=== PATIENT | female | born 1985 | race Hispanic/Latino ===

== ENCOUNTER 2016-10-02 00:44 | Inpatient (IN) | payer MEDICAID ==
[2016-10-02] VITALS (10 sets, daily range): BP systolic 69–108; BP diastolic 42–78; PULSE 55–82; RESP 11–30; O2SAT 95–100
[~2016-10-02] VITALS: Ht 147.3 cm; Wt 59.1 kg
[~2016-10-02 00:44] MED LIST: ASP81TEC PO; DIGO250T PO; TOPR25T PO; XVIS2550 PO; ZES5 PO; ZOC20 PO
--- NOTE | 2016-10-02 01:11 | ED.REPORT ---
HPI-Stroke / CVA Oct 02, 2016 ED Provider: Beka Porter MD Patient is a 31 year old female with a history of nonischemic cardiomyopathy, wide complex tachycardia s/p AICD placement, congestive heart failure, 2x prior CVAs who presents to the ED via EMS after she awoke just prior to arrival sleep screaming and complaining of weakness. Her reports a last known normal of 10pm last night. Her states that she awoke from sleep crying and stating that she had difficulty getting enough air. She states that she "could not move" and was weak on her right side. He reported that the patient had a similar presentation when she last had a CVA. Her most recent CVA was in 2014 and she is followed by the [facility]. Patient was given 250mg of Ketamine by EMS due to her persistent screaming, with the patient arriving to the ED sedated and non-arousable. She is unable to provide any history. Nursing Notes Stated Complaint: CODE STROKE Nursing Notes Reviewed: Yes Allergies: Coded Allergies: No Known Allergies (Verified , 10/02/16) Scheduled Aspirin-Expunged Drug, Do Not Renew! (Aspirin EC-Expunged Drug, Do Not Renew!) 81 Mg Tablet 81 MG PO DAILY (Reported) DO NOT CRUSH. To protect your heart. Digoxin-Expunged Drug, Do Not Renew! (Digoxin-Expunged Drug, Do Not Renew!) 250 Mcg Tablet 0.25 MG PO DAILY (Reported) For your heart. Lisinopril-Expunged Drug, Do Not Renew! (Lisinopril-Expunged Drug, Do Not Renew! ) 5 Mg Tablet 2.5 MG PO DAILY (Reported) Metoprolol Suc-Expunged Drug, Do Not Renew! (Metoprolol Suc-Expunged Drug, Do Not Renew!) 25 Mg Tber 25 MG PO DAILY (Reported) To control heart rate/blood pressure. Simvastatin-Expunged Drug, Choose New Med! (Simvastatin-Expunged Drug, Choose New Med!) 20 Mg Tablet 10 MG PO DAILY (Reported) Scheduled PRN Hydroxyzine Leslie-Expunged Drug, Do Not Renew! (Vistaril-Expunged Drug, Do Not Renew!) 25 Mg Tab 25 MG PO Q12 PRN PRN (Reported) As needed for itching General Time Seen by Provider: 01:00 Chief Complaint Weakness, Unconscious Right-sided Hx Obtained From: EMS Unable to Obtain Hx: Patient condition Arrived By: Ambulance Time last known well 10pm last night Sudden in Onset?: Yes Context of Onset: During sleep Symptom Duration: Since onset Progression Since Onset: Unchanged Similar Sx Previous: Yes Past Medical History Past Medical History 1. Cardiomyopathy with history of arrhythmia, the etiology appears unclear. 2. Congestive heart failure, chronic, secondary to nonischemic cardiomyopathy. 3. 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 Class 2 TB. 5. chronic hypotension 6. Wide complex tachycardia, status post automatic implantable cardioverter defibrillator placement. Past Surgical History Reports: Pacemaker insertion (AICD), Tubal ligation Smoking History Unknown if Ever Smoker Social History Other Social History: Good social support, , Local resident Ambulatory Status Independent Review of Systems Unable to Obtain ROS Patient condition (sedated) Neurologic: Reports: Change LOC, Weakness Physical Exam Initial Vital Signs Vital Signs (First) Date Time Temp Pulse Resp B/P Pulse Ox O2 Delivery O2 Flow Rate FiO2 10/02/16 00:55 35.0 70 11 105/66 95 Nasal Cannula 3 Initial VS: Reviewed, Vital signs normal ENT: Mucous membranes moist, Conjunctiva normal, No scleral icterus Abdomen / GI: Soft, No distention Extremities: No swelling Skin: Warm, Dry, No cyanosis Alertness: Positive: Sleeping but arousable, Unresponsive, Negative: Responds to pain stimuli, Responds to verb stimuli Head / Eyes: Normocephalic, PERRL Neck: Supple, Non-tender Respiratory / Chest: No rales, No rhonchi, No wheezing Periodic breathing with some apneic pauses. Requiring airway to be held open by RT, but has a good protectice reflex. Cardiovascular: Heart rate NL, Regular rhythm, Heart sounds NL, No gallop, No murmurs Mental Status: Positive: Pharmacologically sedated Patient is unconscious and sedated, unable to perform a neurological exam. Interpretation & Diagnostics Lab Results Interpretation Result Diagram: 10/02/16 0435 10/02/16 0435 Test 10/02/16 01:00 10/02/16 01:27 10/02/16 01:42 Prothrombin Time 12.4sec (8.1-12.5) Prothromb Time International Ratio 1.16ratio Activated Partial Thromboplast Time 27.5sec (22.8-33.0) Troponin T 0.151ug/L (0.0-0.011) Hold [place] Top Tube Received (Received) Hold Purple Top Tube Received (Received) Hold Blue Top Tube Received (Received) Hold Red Top Tube Received (Received) Hold [place] Top Tube Received (Received) Lab Results Interpretation: Troponin is elevated at 0.152, mild hyperkalemia X-Ray Chest Interpretation Chest Xray Interpretation: Impression: Good ET tube position. Increased fluffiness right lobe. View: Portable CT Head Interpretation CONCLUSION: Old left temporal infarct. Suspected old right parietal infarct. No acute intracranial abnormality. Radiologist: Hemant Salamanca MD 10/02/2016 - 1:12:38 AM PDT Study: Head CT no contrast Interpretation / Wet Read by: Interpret - Radiologist Procedures Intubation Intubation Procedure: Patient is sedated prior to procedure, no procedural sedation used. Time: 02:24 Procedure Performed by: ED physician Consent / Setup / Site Prep: Consent from spouse, Oxygen administered, Pulse oximeter applied, potline monitor applied, Hand hygiene observed, Stand sterile technique Patient Position: Sniff position Blade / ET Tube / Route: Lodge scope, ET tube cuffed (7 ET tube), Route: oral Neuromuscular Agent: Succinylcholine (100mg) ET Confirmation: Direct visualization, BS equal, End tidal CO2 device, CXR, Rising O2 sat Secured / Marked: ET tube device, Adhesive tape, Tube marked at ___ cm (21cm ), Tube marked at lip Complications: None Post-Procedure: Condition improved, Tolerated procedure well, Patient stable Re-Eval/Medical Decision Med Decision/Clinical Course 31-year-old female with a history of cardiomyopathy and CVA. She had a sudden onset several hours prior to admission of increasing left-sided weakness chest pain or shortness of breath. She was very agitated in the field and was given 250 mg of IM ketamine. Upon arrival here she was profoundly sedated from the medication. CT scan was negative for any acute stroke. She was having some difficulty maintaining her airway so RT assisted. She did not clear within 2 hours so she was intubated to protect and maintain her airway. Evaluation of the neurologic exam was obviously not possible given her sedation. Troponin was elevated 0.152. She developed some increased in airway pressures and frothy blood-tinged sputum. Her case and EKG were shared with Dr. Eagle who will consult. He did not feel that she represented coronary artery disease. He recommended Lasix, and serial troponins and EKGs. She was not felt to be a candidate for TPA because of the contingencies of her presentation. Source of Hx: Old records Re-Evaluation/Progress #1: Time of Eval: 01:30 Re-Evaluation/Progress Note: Patient continues to need RT to breathe. She remains sedated and cannot evaluate her neurologically. Re-Evaluation/Progress #2: Time of Eval: 02:18 Re-Evaluation/Progress Note: Patient remains sedated and needs RT for breathing assistance. Will intubate the patient. Informed her that she will need to be admitted to the hospital for further care. Consultation #1: Referral / Consult Name: Veronika Mckeon MD Consulted With: Hospitalist Call Returned at: 02:50 Main Line Station Engineer: Will see patient, Agrees with eval, Agrees with plan, Accepts admit Note: Spoke with Dr. Mckeon, hospitalist, about the patient's case. She agrees to accept the patient for admit. Consultation #2: Referral / Consult Name: Arpit Bonilla MD Consulted With: Cardiology Call Returned at: 03:15 Main Line Station Engineer: Agrees with eval, Agrees with plan Note: Spoke with Dr. Bonilla, cardiology, about the patient's case. He agrees to act as consult. Counseled Regarding: Diagnosis, Lab results, Need for admission Patient Discharge & Departure Impression: Primary Impression: Decreased level of consciousness Additional Impressions: Cardiomyopathy Elevated troponin Disposition: ADMITTED TO HOSPITAL Discharge Condition All VS Reviewed: Yes Condition: Stable Referrals: Kathrin Nguyen MD (PCP) Crit Care Except Billable Proc Time Spent: 30-74 minutes Services Performed: Patient management by me, Time spent at bedside, Reviewing test results, Reviewing imaging, Discussing patient care, Documentation in record, Time with fam/surrogate Critical Care Notes: Present with combined neurologic and cardiac disease requiring intubation and CCU admission. Scribe Attestation Portions of this note were transcribed by Fabiola Valle. I, Dr. Porter personally performed the history, physical exam and medical decision-making; I reviewed and confirmed the accuracy of the information in the transcribed note. Signed by: Amie Zamora, 10/02/2016 [id number] copies to: Kathrin Nguyen MD, Howard L MD Oct 02, 2016 01:11 Fabiola Valle Oct 02, 2016 01:19 Hold [place] Top Tube Received (Received) Hold Purple Top Tube Received (Received) Hold Blue Top Tube Received (Received) Hold Red Top Tube Received (Received) Hold [place] Top Tube Received (Received) X-Ray Chest Interpretation Chest Xray Interpretation: Impression: Good ET tube position. Increased fluffiness right lobe. View: Portable CT Head Interpretation CONCLUSION: Old left temporal infarct. Suspected old right parietal infarct. No acute intracranial abnormality. Radiologist: Hemant Salamanca MD 10/02/2016 - 1:12:38 AM PDT Study: Head CT no contrast Interpretation / Wet Read by: Interpret - Radiologist Procedures Intubation Intubation Procedure: Patient is sedated prior to procedure, no procedural sedation used. Time: 02:24 Procedure Performed by: ED physician Consent / Setup / Site Prep: No consent - emergent, Oxygen administered, Pulse oximeter applied, potline monitor applied, Hand hygiene observed, Stand sterile technique Patient Position: Sniff position Blade / ET Tube / Route: Lodge scope, ET tube cuffed (7 ET tube), Route: oral Neuromuscular Agent: Succinylcholine (100mg) ET Confirmation: Direct visualization, BS equal, End tidal CO2 device, CXR, Rising O2 sat Secured / Marked: ET tube device, Adhesive tape, Tube marked at ___ cm (21cm ), Tube marked at lip Complications: None Post-Procedure: Condition improved, Tolerated procedure well, Patient stable Re-Eval/Medical Decision Source of Hx: Old records Re-Evaluation/Progress #1: Time of Eval: 01:30 Re-Evaluation/Progress Note: Patient continues to need RT to breathe. She remains sedated and cannot evaluate her neurologically. Re-Evaluation/Progress #2: Time of Eval: 02:18 Re-Evaluation/Progress Note: Patient remains sedated and needs RT for breathing assistance. Will intubate the patient. Informed her that she will need to be admitted to the hospital for further care. Consultation #1: Referral / Consult Name: Veronika Mckeon MD Consulted With: Hospitalist Call Returned at: 02:50 Main Line Station Engineer: Will see patient, Agrees with eval, Agrees with plan, Accepts admit Note: Spoke with Dr. Mckeon, hospitalist, about the patient's case. She agrees to accept the patient for admit. Consultation #2: Referral / Consult Name: Arpit Bonilla MD Consulted With: Cardiology Call Returned at: 03:15 Main Line Station Engineer: Agrees with eval, Agrees with plan Note: Spoke with Dr. Bonilla, cardiology, about the patient's case. He agrees to act as consult. Counseled Regarding: Diagnosis, Lab results, Need for admission Patient Discharge & Departure Impression: Primary Impression: Decreased level of consciousness Additional Impressions: Cardiomyopathy Elevated troponin Disposition: ADMITTED TO HOSPITAL Discharge Condition All VS Reviewed: Yes Condition: Stable Referrals: Kathrin Nguyen MD (PCP) Crit Care Except Billable Proc Time Spent: 30-74 minutes Services Performed: Patient management by me, Time spent at bedside, Reviewing test results, Reviewing imaging, Discussing patient care, Documentation in record, Time with fam/surrogate Scribe Attestation Portions of this note were transcribed by Fabiola Valle. I, Dr. Porter personally performed the history, physical exam and medical decision-making; I reviewed and confirmed the accuracy of the information in the transcribed note. Signed by: Amie Zamora, 10/02/2016 0343 copies to: Kathrin Nguyen MD, Howard L MD Oct 02, 2016 01:11 Fabiola Valle Oct 02, 2016 01:19
[2016-10-02 01:35] LABS: BASOPHILS % (AUTO) 0.2 % (0-3); EOSINOPHILS % (AUTO) 0.6 % (0-5); MONOCYTES % (AUTO) 14.6 % (4-12); Mean Corpuscular Hemoglobin 25.5 pg (27.0-35.0); Mean Corpuscular Volume 81.2 fL (81-100); NEUTROPHILS % (AUTO) 39.4 % (40-74); Platelet Count 195 bil/L (150-400)
[2016-10-02 01:39] LABS: INR 1.16 ratio
[2016-10-02 02:02] LABS: TROPONIN T 0.151 ug/L (0.0-0.011)
[2016-10-02] MEDS ORDERED: Furosemide 10 mg/mL 4 mL Inj IVPUSH ONE (03:00)
[2016-10-02] MEDS ORDERED: Propofol 10,000 mCg/mL 100 mL Inj ONE (03:09)
[2016-10-02] MEDS ORDERED: Alum-Mag Hydrox-Simeth 30 mL Suspension PO PRN (03:10)
[2016-10-02] MEDS ORDERED: Ondansetron 2 mg/mL 2 mL Inj IVPUSH PRN ×2 (03:10→03:55)
[2016-10-02] MEDS ORDERED: Senna-Docusate 8.6-50 mg Tablet PO PRN (03:10)
[2016-10-02] MEDS ORDERED: Polyethylene Glycol (PEG) 17 Gm Powder PO PRN ×2 (03:10→03:55)
--- NOTE | 2016-10-02 03:40 | ABG ---
DateTimeAnalyzed 03:37:00 -_ pH ____7.132 - 7.350 7.450 pCO2 ___61.8__ -mmHg 35.0 45.0 pO2 368 -mmHg 69.0 116 HCO3- ___19.7__ -mmol/L 22.0 26.0 ABE __-10.0__ -mmol/L -2.0 2.0 tHb ___13.1__ -g/dL O2Hb ___98.1__ -% COHb ____0.5__ -% MetHb ____0.7__ -% sO2 ___99.3__ -% FIO2 __100.0__ -% PEEP ____8.0__ -cmH2O Set_RR ___24.0__ -b/min Vt __350.0__ -L Drawn By bf - Date/Time Notified____ 03:40:00 -_ Spontaneous_RR ___26.0__ -b/min Oxygen Device 1 VENTILATOR - Notified By AF - Notified Whom ___Dr. Leibrand - B 759 -mmHg tO2 ___18.9__ -Vol% Jefry test _Positive -
[2016-10-02] MEDS: Propofol Inj 1,000,000 MCG in IV Premix 1 EACH IV SCH ×3 (03:55→14:54)
[2016-10-02] MEDS ORDERED: Pantoprazole 4 mg/mL 10 mL Inj IVPUSH SCH (03:55)
[2016-10-02 04:00] LABS: APPEARANCE,URINE CLEAR (CLEAR,HAZY); COLOR,URINE DARK YELLOW (YELLOW); OCCULT BLOOD,URINE TRACE (NEGATIVE)
[2016-10-02 04:01] LABS: ICTOTEST,URINE POSITIVE (Negative)
[2016-10-02 04:53] LABS: BASOPHILS % (AUTO) 0.1 % (0-3); EOSINOPHILS % (AUTO) 0 % (0-5); MONOCYTES % (AUTO) 7.4 % (4-12); Mean Corpuscular Hemoglobin 25.5 pg (27.0-35.0); Mean Corpuscular Volume 80.9 fL (81-100); NEUTROPHILS % (AUTO) 83.7 % (40-74); Platelet Count 192 bil/L (150-400)
[2016-10-02] MEDS ORDERED: DOPamine 800 mg/250 mL D5W 800,000 MCG in IV Premix 1 EACH IV SCH (04:55)
--- NOTE | 2016-10-02 04:59 | ABG ---
DateTimeAnalyzed 04:57:00 -_ pH ____7.385 - 7.350 7.450 pCO2 ___35.9__ -mmHg 35.0 45.0 pO2 159 -mmHg 69.0 116 HCO3- ___21.0__ -mmol/L 22.0 26.0 ABE ___-2.9__ -mmol/L -2.0 2.0 tHb ___12.0__ -g/dL O2Hb ___97.5__ -% COHb ____1.2__ -% MetHb ____0.8__ -% sO2 ___99.5__ -% FIO2 ___50.0__ -% PEEP ____8.0__ -cmH2O Set_RR ___30.0__ -b/min Vt __330.0__ -L Drawn By AF - Date/Time Notified____ 04:59:00 -_ Spontaneous_RR ___31.0__ -b/min Oxygen Device 1 VENTILATOR - Notified By AF - Notified Whom ___Dr. Kubisty - B 759 -mmHg tO2 ___16.8__ -Vol% Jefry test _Positive -
--- NOTE | 2016-10-02 05:19 | PCM.HPMED ---
Subjective Date of Service Oct 02, 2016 Primary Provider: Admitting Physician: Veronika Mckeon MD Primary Care Physician: Kathrin Nguyen MD Attending Physician: Veronika Mckeon MD Chief Complaint: Hemiparesis, respiratory distress History of Present Illness: Patient is a 31-year-old woman with history of tuberculosis status post treatment in 2000, nonischemic cardiomyopathy, wide complex tachycardia status post AICD placement, congestive heart failure, 2 previous CVAs mukesh in 2011 the other in 2014, the former being hemorrhagic per . 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 Earlier this evening they were watching a movie, but he finished and he went to bed without any problems. Patient attempting to fall asleep using her CPAP machine, 10-20 minutes later she was restless per , it appeared as though she was trying to scream but could not make any intelligible words, he said her tongue was deviated to the right, and right arm and leg were not moving. He called his son, who called the ambulance. She is seen by box covering machine operator Dr. Oz Scott in [place], reportedly she had a visit in July of this year and was told that her heart function was worsening. In regards to her cardiomyopathy, reports that patient's sister, roughly 10 years younger, has similar problems. In the last couple of days says she has been having trouble breathing when laying flat. As reported by the emergency department that due to the patient's distress in the field she was given ketamine en route. When she arrived in the emergency department she was sedated and not arousable. Given the history of code stroke was called. She was intubated due to concern for protecting her airway She received the following workup: noncontrast head CT which was read as "CONCLUSION: Old left temporal infarct. Suspected old right parietal infarct. No acute intracranial abnormality." 10/02/2016 - 1:12:38 AM PDT Chest x-ray- no official reading as of this dictation: Cardiac silhouette markedly enlarged, lung singh appear to have diffuse interstitial edema. Endotracheal tube in place. No pneumo or hemothorax, no effusions Labs: WBC 9.3, hemoglobin and hematocrit normal, platelet count 195, 39.4% neutrophils, 14.6% monocytes. Sodium 140, potassium 5.5, BUN/creatinine normal , total bili 1.4, liver enzymes normal, alk phosphatase 190, troponin 0.151. Coag studies were normal. Urine dark yellow, pH 6.0, specific gravity 1.03, protein 100, negative glucose and ketones, negative nitrites, no bacteria seen. EKG #1: Heart rate 70, "accelerated junctional rhythm, ventricular bigeminy, probable left ventricular hypertrophy, anterior Q waves, possibly due to LVH, nonspecific T abnormalities in lateral leads." EKG #2: Heart rate 74, sinus rhythm, "left atrial enlargement, consider biatrial enlargement. Anterolateral infarct, age indeterminate." Arterial blood gas in the emergency department: PH 7.13, PCO2 61.8, PaO2 368, bicarbonate 19.7, FiO2 100% Dr. Bonilla, cardiology, was spoken with regarding the patient, agreed to consult. Was instructed by the ER physician that the picture does not appear to be coronary artery occlusion, and to hold off heparin drip. Review of Systems: Review of systems unable to be obtained secondary to sedation and intubation Allergies Coded Allergies: No Known Allergies (Verified , 10/02/16) Home Medications Reported In enteric coated aspirin, 81 mg by mouth daily Digoxin 250 g daily by mouth daily Hydroxyzine 25 mg every 12 hours as needed for itching Lisinopril 2.5 mg daily by mouth daily Metoprolol XL 25 mg by mouth daily Simvastatin 10 mg by mouth daily PMH 1. Cardiomyopathy with history of arrhythmia, the etiology appears unclear. 2. Congestive heart failure, chronic, secondary to nonischemic cardiomyopathy. 3. CVA in 2011 (hemorrhagic) and 2014 embolic -per , 4. Class 2 TB. status post 6-9 months of oral antibiotic therapy in 2000 5. chronic hypotension 6. Wide complex tachycardia, status post automatic implantable cardioverter defibrillator placement. Surgical History AICD placement 2011 Tubal ligation with complication of intra-abdominal hemorrhage Family History Per - parents history unknown Patient has a sister roughly 10 years younger with similar heart problems Social History Hx Alcohol Use: No Hx Substance Use: No Hx Tobacco Use: No Smoking Status: Unknown if Ever Smoker Living Arrangement: with Family Exam Vital Signs Vital Sign - Last Date Time Temp Pulse Resp B/P Pulse Ox O2 Delivery O2 Flow Rate FiO2 10/02/16 04:38 66 94/54 100 50 10/02/16 04:15 27 Mechanical Ventilator 10/02/16 00:55 35.0 3 Exam General: Laying in bed, intubated, sedated, occasional coughs HEENT: Normocephalic, atraumatic, EOMI grossly, endotracheal tube and OG tube in place. Cardiovascular: Regular rate and rhythm, no clicks murmurs rubs, peripheral pulses 2/4 equal bilaterally, unable to appreciate third heart sound, PMI to faint to appreciate. Hepatojugular reflux not appreciated, no JVD apparent Pulmonary: Clear to auscultation bilaterally, rhonchi present throughout the thorax, unable to appreciate rales. Frothy pink sputum coughed up through endotracheal tube. Abdominal: Soft to palpation, bowel sounds present 4, no hepatosplenomegaly. Patient recoils when right upper extremity is deeply palpated. Surgical scar, midline below the umbilicus. Extremities: No edema appreciated. No tenderness, asymmetry. Neuro: Neurologic exam is limited due to sedation. Pupils are equally round. She appears to only move her left upper and lower extremities in response to pain. MSK: Unable to thoroughly examine. Psych: GCS 3 Lab and Diagnostics Result Diagram: 10/02/16 0435 10/02/16 0100 Microbiology Sputum samples pending X-Rays, CTs and MRIs Please see history of present illness 12-lead ECG Please see history of present illness Cardiac Echo Impressions Echocardiogram performed 06/03/2013 The ejection fraction is estimated to be 20-25%. There is moderate to severe global hypokinesis of the left ventricle, basal inferior akinesis and severe inferior hypokinesis. Assessment of diastolic parameters suggests a pseudonormalization pattern, consistent with elevated filling pressures. There is an ICD lead in the right ventricle. The right ventricle is normal in size and function. The left atrium is severely dilated. The right atrium is mildly dilated. There is mild tricuspid regurgitation. The right ventricular systolic pressure is estimated at 48 mmHg assuming a right atrial pressure of 8 mm Hg The patient was in normal sinus rhythm with frequent PVCs during the exam. Comparison is made with the echocardiogram of 06/24/12. LV systolic function is slightly worsened, with the EF down from 30-35% to 20-25% Additional Diagnostics: An ion gap 17.0 mEq per liter Urine tox screen in the ED positive for opiates. Assessment & Plan 31-year-old woman with history of cardiomyopathy, congestive heart failure, 2 previous cerebrovascular accidents, suffered acute hemiparalysis and respiratory distress. #1 acute right-sided hemiparesis, highly suspect embolic/ischemic CVA, present on admission, evaluation and treatment initiated - reports right-sided hemiparesis prior to calling EMS, patient is heavily sedated unable to perform proper NIH assessment. Head CT noncontrast in the ED did not show any acute bleed, evidence of old infarct present. -CTA neck and head, BUN/creatinine stable. Patient is intubated otherwise MRI. -Neurology consult in the a.m. -Patient is on statin medication as an outpatient, enteric-coated aspirin, digoxin. -Patient currently hypotensive with sedation, treatment as below to preserve perfusion. #2 acute respiratory distress, most likely due to flash pulmonary edema secondary to congestive heart failure exacerbation, present on admission, evaluation and treatment initiated -X-ray appearing fluid overloaded, pink frothy sputum, worsening history of coughing while laying flat, superimposed on history of cardiomyopathy. -IV Lasix 40 mg given, -Osorio catheter in place -Remain intubated at this time until evaluated by pulmonary and security chief museum. -PICC line for dopamine to maintain map greater than 65, patient is on digoxin outpatient for hypotension. #3 mixed respiratory and metabolic acidosis, chronicity unknown, present on admission, improving. -PH 7.13 1 hour later following intubation => 7.38 PCO2 61.8 => 35.9 PO2 36 8 => 159 HCO3 19.7 => 21.0 100% FiO2 reduced to 50% Most likely due to acute pulmonary edema, compromising gas exchange superimposed with prehospital sedation. Improving with mechanical ventilatory support. Respiratory therapy to follow and management vent. #4 acute hyperkalemia, present on admission, evaluation and treatment ongoing. -Possibly due to effect of digoxin -We will monitor with a.m. labs after receiving Lasix. -EKG is nonspecific for signs of potassium toxicity, however if remains elevated will consider additional treatment. Patient has elevated blood glucose , insulin may be of use. 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 Blood pressure upon arrival to the CCU was 84/51, with a map of 56. Patient has low blood pressure normally, on digoxin and metoprolol as an outpatient. Holding these medications until consultation and additional evaluation has been performed. Most recent echocardiogram on file was from 2012 showed an EF of 20-25% Patient is being seen by Dr. Oz Scott in [place], I have asked the community relations assistant to acquire records. states that they were told in July that her heart strength had decreased. PICC line has been placed, dopamine drip to preserve MAP >65, given the concern for embolic stroke blood pressure should be aggressively maintained. Urgent echocardiogram in the morning Cardiology has been consult by the emergency room physician, Dr. Rendon has agreed to accept the patient #6 acute on chronic elevated serum troponin, present on admission, evaluation ongoing. -Review of previous troponin levels show them always to be elevated. -Heparin drip was not started, it was reported by the emergency room physician that EKG changes and troponin level rise (from baseline) were not consistent with a picture of an NSTEMI. -Echocardiogram, cardiology consultation as above #7 Acute elevated serum lactic acid present on admission, evaluation and treatment ongoing -most likely due to cardiogenic shock due to low output, concurrent hypercapnia. -Treatment as above. -trend until normal. #8 elevated serum glucose, chronicity unknown, evaluation and treatment initiated. Hemoglobin A1c Low-dose correctional insulin Nothing by mouth at this time VTE Prophylaxis with subcutaneous heparin and SCDs GI prophylaxis: PPI Pain management: Sedation propofol and fentanyl. Due to cardiac instability, need for intubation due to poor respiratory protection, patient was admitted to the critical care unit with an anticipated length of stay greater than two midnights Pain Evaluation: Adequate Pain Control GI Prophylaxis: Proton Pump Inhibitor VTE Prophylaxis: Sub-Q Heparin (Unfractionated) Resuscitation Status: CPR: Attempt Resuscitation Attending Statement Pt seen and examined by myself and agree with above plan. Dillon Traylor DO Oct 02, 2016 05:19 Veronika Mckeon MD Oct 04, 2016 06:25
[2016-10-02 05:22] LABS: Magnesium 1.8 mg/dL (1.6-2.6)
[2016-10-02] MEDS ORDERED: Sodium Chloride LOK Flush 10 mL Syringe IVFLUSH PRN ×2 (05:45)
[2016-10-02] MEDS: Sodium Chloride LOK Flush 10 mL Syringe IVFLUSH SCH ×2 (05:47→07:46)
[2016-10-02] MEDS: Chlorhexidine 0.12% 15 mL Oral Solution MT SCH ×3 (05:47→12:32)
[2016-10-02] MEDS: fentaNYL-PF 50 mCg/mL 2 mL Inj IVPUSH PRN ×2 (06:22→07:40)
[2016-10-02] MEDS ORDERED: Magnesium Sulf 2 Gm/50mL Water 2 GM in IV Premix 1 EACH IV ONE (06:45)
--- NOTE | 2016-10-02 07:44 | NUR ---
admit note pt received from er at 0440 per trevin to ccu room 2011, admit done per recall and per husbands info who stated that medical history should be in computer, asked to bring pt's home meds in for med rec, went home after pt received to ccu to take care of the kids, aware pt not well sedated on vent on propofol gtt 12-18mcg/kg/min, md wanted dopamine gtt for hypotension, low dose dopamine on briefly then turned off due to multiple pvc's, md aware dopamine off and aware of labs, picc line ordered for this am, ivt called and at bedside at change of shift, lab aware of lactic acids ordered q2hrs, perrla, 5mm bilaterally, right side flacid, left side with lots of movement when pt agitated, 1100 ml uop per f/c no bm, ogt placement=wnl, ogt to lis, see ccu flow sheet, continue monitoring, day rn aware of order for echo/ct/md consults for today,
[2016-10-02] MEDS: Insulin Human REGular 300 Unit/3 mL Inj SUBQ SCH ×2 (07:59→14:30)
--- NOTE | 2016-10-02 08:13 | DRSVH ---
PROCEDURE: CT BRAIN (TPA) ([id number]) INDICATIONS: Stroke TECHNIQUE: Noncontrast 4.5 mm thick angled axial sections acquired from the foramen magnum to the vertex, with c oronal reformats. COMPARISON: [facility], CT, BRAIN W/O CONTRAST, 01/11/2012, 15:48. [facility], CT, BRAIN W/O CONTRAST, 01/25/2013, 19:54. [facility], CT, BRAIN W/O CONTRAST, 2014, 14:10. FINDINGS: Image quality: Excellent. CSF spaces: Basal cisterns are patent. No extra-axial fluid collections. Ventricles are normal in size and shape. Brain: Again noted is an old infarct in the left frontotemporal lobe with encephalomalacia. No midli ne shift. No intracranial masses or hemorrhage. Xiong-white matter interface is normal. Skull and face: Calvarium and visualized facial bones are intact, without suspicious lesions. Sinuses: Visualized sinuses and mastoids are clear. IMPRESSION: 1. No acute intracranial abnormalities. 2. Old infarction left frontotemporal lobe. No significant discrepancy with the operation shift supervisor radiology preliminary report. This study fulfills neurological imaging criteria for inclusion or exclusion of acute stroke therapie s based on available published neurological imaging guidelines. Dictated by: Viky Llanes M.D. on 10/02/2016 at 8:04 Approved by: Viky Llanes M.D. on 10/02/2016 at 8:11
--- NOTE | 2016-10-02 08:14 | DRSVH ---
PROCEDURE: X-RAY CHEST ONE VIEW, PORTABLE ([id number]) INDICATIONS: POST INTUBATION TECHNIQUE: One view of the chest was acquired. COMPARISON: [facility], CR, CHEST 2VW, 06/29/2012, 6:29. [facility], CR, C HEST 1VW (PORTABLE), 09/08/2014, 14:08. FINDINGS: Surgical changes and devices: ETT is in place tip projected 3.1 cm above the chasity. Stable position ing of left single lead chest AICD. Lungs and pleura: Lung volumes are low and interstitium is prominent and pulmonary edema suspected. Bibasilar airspace opacities. No pneumothorax. Mediastinum: Mediastinal contours appear normal. Heart size is enlarged. Bones and chest wall: No suspicious bony lesions. Overlying soft tissues appear unremarkable. IMPRESSION: 1. Placement of ETT. 2. Pulmonary edema and/or pneumonia versus atelectasis involving the lung bases. Dictated by: Robe CALDERON Interpreted: Maya Conley MD on 10/02/2016 at 8:12 Transcribed by: MOISÉS on 10/02/2016 at 8:14 Approved by: Maya Conley M.D. on 10/02/2016 at 16:45
[2016-10-02] MEDS ORDERED: fentaNYL 2,500 mCg/250 mL 2,500 MCG in IV Premix 1 EACH IV SCH (08:20)
[2016-10-02] MEDS ORDERED: Heparin 5,000 Unit/mL Inj SUBQ SCH (08:30)
[2016-10-02] MEDS ORDERED: EPINEPHrine 10,000 mCg/250 mL NS IV SCH ×2 (08:55)
--- NOTE | 2016-10-02 09:45 | DRSVH ---
[facility] [address] [place] [address] Echocardiogram Report Name: MANDY NORTON Study Date: 10/02/2016 Mary ht: 56 in Hospital Exam Location: [facility] ht: 130 lb Gender: Female BSA: 1.5 m2 : 1985 Age: 31 yrs BP: 88/47 mmHg Reason For Study: Cardiomyopathy Ordering Physician: [facility] Performed By: Dorina Munoz Referring Physician: DR. ROWAN, DR. ROBERT Interpretation Summary The left ventricle is severely dilated and is significantly larger compared to the previous study. Left ventricular systolic function is severely reduced with the ejection fraction visually estimated to be 10-15%. Compared to the prior exam, left ventricular function has moderately decreased. There is severe global hypokinesis of the left ventricle that is worse in the inferior and posterior segments which are akinetic, as well as the apex but this is unchanged compared to the previous study. Assessment of diastolic parameters indicates a restrictive filling pattern of the left ventricle consistent with significantly elevated filling pressures, likely higher compared to the previous study. The right ventricle is moderately dilated and right ventricular systolic function is moderate to severely reduced. The right ventricle appears larger and more hypokinetic compared to the previous study. Right ventricular systolic pressure is estimated to be 47 mmHg plus the clinically estimated CVP which cannot be estimated on this exam but right ventricular systolic pressure is likely higher than on the previous study. Both atria are severely dilated and both atria have significantly increased in size since the prior echo exam. There is moderate mitral regurgitation and moderate tricuspid regurgitation. Both are significantly worse compared to the previous study. There is no other significant valvular heart disease. There is a trivial pericardial effusion noted which is new compared to the previous study but there are no echocardiographic or Doppler indications for cardiac tamponade. Procedure: A two-dimensional transthoracic echocardiogram with color flow and Doppler was performed. The study quality was technically good. Comparison is made with the echocardiogram of 06-03-2013. The patient was in a bradycardic rhythm during the exam. Left Ventricle: The left ventricle is severely dilated. This is significantly larger compared to the previous study. There is no thrombus. Left ventricular systolic function is severely reduced. The ejection fraction is estimated to be 10-15%. Compared to the prior exam, left ventricular function is moderately decreased. There is severe global hypokinesis of the left ventricle. This is worse in the inferior and posterior segments which are akinetic, as well as the apex. This is unchanged compared to the previous study. Assessment of diastolic parameters indicates a restrictive filling pattern of the left ventricle consistent with significantly elevated filling pressures. This is likely higher compared to the previous study. Right Ventricle: There is a pacemaker lead in the right ventricle. The right ventricle is moderately dilated. Right ventricular systolic function is moderate to severely reduced. This is larger and more hypokinetic compared to the previous study. Atria: Both atria are severely dilated. Both atria have significantly increased in size since the prior echo exam. A patent foramen ovale is present. Mitral Valve: The mitral valve leaflets appear mildly thickened, but open well. There is moderate mitral regurgitation. This is significantly worse compared to the previous study. Aortic Valve: The aortic valve is trileaflet. The aortic valve opens well. No aortic regurgitation is present. Tricuspid Valve: The tricuspid valve leaflets are thin and pliable. There is moderate tricuspid regurgitation. This is significantly worse compared to the previous study. Right ventricular systolic pressure is estimated to be 47 mmHg plus the clinically estimated CVP which cannot be estimated on this exam. Pulmonic Valve: The pulmonic valve leaflets are thin and pliable; valve motion is normal. There is trace pulmonic regurgitation. There is no other significant valvular heart disease. Great Vessels: The aortic root is normal size. The dimensions of the ascending aorta are normal. The pulmonary artery is normal size. The IVC has a measurement of 24 mm. Inspiratory collapse cannot be assessed because of mechanical ventilation, thus CVP cannot be estimated.. Pericardium/ Pleura There is a trivial pericardial effusion noted. There are no echocardiographic or Doppler indications for cardiac tamponade. This is new compared to the previous study. MMode/2D Measurements & Calculations LVIDd: 7.5 cm LA dimension: 5.3 cm RA long axis LVOT diam LVIDs: 7.1 cm FS: 6.4 % LA A2 area: 37.7 cm RA area AoV Opening EPSS: 2.3 cm LA A4 area: 33.0 cm IVSd: 1.2 cm LA length (vol): 6.9 cm: 29.2 cm Ao root diam LVPWd: 0.50 cm LA vol: 153.1 ml RA vol LA vol index : 111.ml asc Aorta RA Diam: 2.5 cm : 101.0 ml/m2 : 73.7 mm/ IVC diam: 2.4 cm RVDd major : 7.0 cm LV cadena. diameter/BSA LV sys. diameter/BSA RVD2 (mid) (cm/m^2): 5.0 (cm/m^2): 4.7 : 4.5 cm Doppler Measurements & Calculations Ao V2 max MV E max darryn MV E/A: 4.4 TR max darryn : 126.8 cm/sec : 112.9 cm/sec Med Peak E' Darryn : 342.2 cm/sec Ao max PG MV A max darryn TR max PG : 6.4 mmHg : 25.6 cm/sec E/E' med: 97.5 : 46.8 mmHg Ao mean PG MV P1/2t: 42.6 msec Lat Peak E' Darryn PA V2 max : 172.4 cm/sec LVOT Max Darryn E/E' lat: 24.9 PA mean PG : 117.3 cm/sec E/e' average PRECIOUS(I,D): 1.9 cm PA Accel Time sev ratio MV A dur: 0.12 sec: 0.09 sec MV dec time MV P1/2t max darryn Ao V2 mean LV V1 max PG : 0.15 sec : 89.0 cm/sec Ao V2 VTI: 27.6 cmLV V1 VTI MVA(P1/2t): 5.2 cm2 : 21.7 cm PRECIOUS(V,D): 2.2 cm2 PA V2 mean PRECIOUS indexed to BSA : 108.0 cm/sec (cm^2/m^2): 1.3 Reading Physician:09:44 AM
--- NOTE | 2016-10-02 11:02 | DRSVH ---
PROCEDURE: X-RAY CHEST ONE VIEW, PORTABLE ([id number]) INDICATIONS: right IJ placement TECHNIQUE: One view of the chest was acquired. COMPARISON: , CR, XR CHEST 1VW (PORTABLE), 10/02/2016, 2:42. FINDINGS: Surgical changes and devices: Endotracheal tube tip projects 1.6 cm above the chasity. Right IJ CVL h as also been placed with tube tip projected over the lower right atrium. Stable position left chest AICD. Lungs and pleura: No pleural effusions or pneumothorax. Persistent medial basilar airspace opacitie s redemonstrated Mediastinum: Mediastinal contours appear normal. Heart size is markedly enlarged. Bones and chest wall: No suspicious bony lesions. Overlying soft tissues appear unremarkable. IMPRESSION: 1. Placement of right IJ central line. The tip project of the central line projects over the lower SV C. 2. Bibasilar atelectasis versus aspiration or pneumonia. 3. Marked cardiomegaly. Holli Maciel RN given results 1050 hrs. 10/02/2016. Dictated by: Robe Magana RR Interpreted: Viky Llanes MD on 10/02/2016 at 10:56 Transcribed by: GOMEZ on 10/02/2016 at 11:02 Approved by: Viky Llanes M.D. on 10/02/2016 at 12:13
--- NOTE | 2016-10-02 11:23 | NUR ---
[facility] Received request for pressure ulcer protocol evaluation for patient due to Narayan score of 11. Unable to assess patient due to multiple test, multiple MDs present and likely pending transfer to . Will follow up and assess as needed if patient remains at [facility].
--- NOTE | 2016-10-02 11:31 | PCM.DC.MED ---
Discharge Summary Date of Service Oct 02, 2016 Dates of Hospitalization Date of Hospital Admission Oct 02, 2016 at 03:44 Date of Discharge: Oct 02, 2016 Providers: Admitting Physician: Veronika Mckeon MD Primary Care Physician: Kathrin Nguyen MD Attending Physician: Veronika Mckeon MD Diagnosis at Time of Discharge Diagnosis at Time of Discharge #1 acute right-sided hemiparesis, highly suspect embolic/ischemic CVA #2 acute on chronic systolic congestive heart failure last EF 10-15% secondary to Nonischemic cardiomyopathy #3 mixed respiratory acidosis and metabolic acidosis #4 acute hyperkalemia #6 acute on chronic elevated serum troponin #7 Acute elevated serum lactic acid #8 elevated serum glucose Consultations cardiology pulmonology Critical Care anesthesiology Procedures XRay, CTs & MRIs CT BRAIN (TPA) IMPRESSION: 1. No acute intracranial abnormalities. 2. Old infarction left frontotemporal lobe. No significant discrepancy with the shiftman radiology preliminary report. This study fulfills neurological imaging criteria for inclusion or exclusion of acute stroke therapies based on available published neurological imaging guidelines. Dictated by: Viky Llanes M.D. on 10/02/2016 at 8:04 Approved by: Viky Llanes M.D. on 10/02/2016 at 8:11 X-RAY CHEST ONE VIEW, PORTABLE IMPRESSION: 1. Placement of ETT. 2. Pulmonary edema and/or pneumonia versus atelectasis involving the lung bases. Dictated by: Robe Magana RRA Interpreted: Maya Conley MD on 10/02/2016 at 8: 12 Transcribed by: MOISÉS on 10/02/2016 at 8:14 ECG 12 Lead Please see history of present illness Cardiac Echo Impression Echocardiogram performed 06/03/2013 The ejection fraction is estimated to be 20-25%. There is moderate to severe global hypokinesis of the left ventricle, basal inferior akinesis and severe inferior hypokinesis. Assessment of diastolic parameters suggests a pseudonormalization pattern, consistent with elevated filling pressures. There is an ICD lead in the right ventricle. The right ventricle is normal in size and function. The left atrium is severely dilated. The right atrium is mildly dilated. There is mild tricuspid regurgitation. The right ventricular systolic pressure is estimated at 48 mmHg assuming a right atrial pressure of 8 mm Hg The patient was in normal sinus rhythm with frequent PVCs during the exam. Comparison is made with the echocardiogram of 06/24/12. LV systolic function is slightly worsened, with the EF down from 30-35% to 20-25% Invasive Procedures Right IJ placed to 8cm Intubation Other Diagnostics Urine tox screen in the ED positive for opiates. Brief History from the H&P of Dillon Traylor DO "Patient is a 31-year-old woman with history of tuberculosis status post treatment in 2000, nonischemic cardiomyopathy, wide complex tachycardia status post AICD placement, congestive heart failure, 2 previous CVAs mukesh in 2011 the other in 2014, the former being hemorrhagic per . History was obtained from the through [employer] video program mgr. Earlier this evening they were watching a movie, but he finished and he went to bed without any problems. Patient attempting to fall asleep using her CPAP machine, 10-20 minutes later she was restless per , it appeared as though she was trying to scream but could not make any intelligible words, he said her tongue was deviated to the right, and right arm and leg were not moving. He called his son, who called the ambulance. She is seen by blocking machine operator Dr. Oz Scott in [place], reportedly she had a visit in July of this year and was told that her heart function was worsening. In regards to her cardiomyopathy, reports that patient's sister, roughly 10 years younger, has similar problems. In the last couple of days says she has been having trouble breathing when laying flat. As reported by the emergency department that due to the patient's distress in the field she was given ketamine en route. When she arrived in the emergency department she was sedated and not arousable. Given the history of code stroke was called. She was intubated due to concern for protecting her airway She received the following workup: noncontrast head CT which was read as "CONCLUSION: Old left temporal infarct. Suspected old right parietal infarct. No acute intracranial abnormality." 10/02/2016 - 1:12:38 AM PDT Chest x-ray- no official reading as of this dictation: Cardiac silhouette markedly enlarged, lung singh appear to have diffuse interstitial edema. Endotracheal tube in place. No pneumo or hemothorax, no effusions Labs: WBC 9.3, hemoglobin and hematocrit normal, platelet count 195, 39.4% neutrophils, 14.6% monocytes. Sodium 140, potassium 5.5, BUN/creatinine normal , total bili 1.4, liver enzymes normal, alk phosphatase 190, troponin 0.151. Coag studies were normal. Urine dark yellow, pH 6.0, specific gravity 1.03, protein 100, negative glucose and ketones, negative nitrites, no bacteria seen. EKG #1: Heart rate 70, "accelerated junctional rhythm, ventricular bigeminy, probable left ventricular hypertrophy, anterior Q waves, possibly due to LVH, nonspecific T abnormalities in lateral leads." EKG #2: Heart rate 74, sinus rhythm, "left atrial enlargement, consider biatrial enlargement. Anterolateral infarct, age indeterminate." Arterial blood gas in the emergency department: PH 7.13, PCO2 61.8, PaO2 368, bicarbonate 19.7, FiO2 100% Dr. Bonilla, cardiology, was spoken with regarding the patient, agreed to consult. Was instructed by the ER physician that the picture does not appear to be coronary artery occlusion, and to hold off heparin drip." Hospital Course #1 acute right-sided hemiparesis, highly suspect embolic/ischemic CVA, present on admission, evaluation and treatment initiated - reports right-sided hemiparesis prior to calling EMS, patient is heavily sedated unable to perform proper NIH assessment. Head CT noncontrast in the ED did not show any acute bleed, evidence of old infarct present. -CTA neck and head, BUN/creatinine stable. Patient is intubated otherwise MRI. -Neurology consult in the a.m. -Patient is on statin medication as an outpatient, enteric-coated aspirin, digoxin. -Patient currently hypotensive with sedation, treatment as below to preserve perfusion. #2 acute on chronic systolic congestive heart failure, second to idiopathic nonischemic cardiomyopathy, treatment ongoing. -Blood pressure upon arrival to the CCU was 84/51, with a map of 56. Patient has low blood pressure normally, on digoxin and metoprolol as an outpatient. -Most recent echocardiogram on file was from on 08/08/2016 showed an EF of 12% -Patient is being seen by Dr. Oz Chaudhari in [place], -right IJ line has been placed, epinephrine drip at lowest dosing to preserve MAP >65, given the concern for embolic stroke blood pressure should be aggressively maintained. -Urgent echocardiogram in the morning showed EF of 10-15% -Cardiology has been consult by the emergency room physician, [facility] Dr. Quinonez spoke by phone to Dr. Chaudhari who agreed the patient should be transferred to -ICU Dr. Angella Louis to accept patient transfer #3 mixed respiratory acidosis and metabolic acidosis, chronicity unknown, present on admission, improving. -abg on admission PH 7.13 , PCO2 61.8, PO2 36.8 HCO3 19.7 -X-ray appearing fluid overloaded, pink frothy sputum, worsening history of coughing while laying flat, superimposed on history of cardiomyopathy. - intubated and sedated on fentanyl drip and propofol drip FiO2 50% -IJ line for epinephrine drip to maintain map greater than 65 -Most likely due to acute pulmonary edema, compromising gas exchange superimposed with prehospital sedation. Improving with mechanical ventilatory support. -Respiratory therapy to follow and management vent. #4 acute hyperkalemia, present on admission, evaluation and treatment ongoing. - Possibly due to effect of digoxin - EKG is nonspecific for signs of potassium toxicity - re-evaluate after correction of respiratory and metabolic acidosis #6 acute on chronic elevated serum troponin, present on admission, evaluation ongoing. -Review of previous troponin levels show them always to be elevated. -Heparin drip was not started, it was reported by the emergency room physician that EKG changes and troponin level rise (from baseline) were not consistent with a picture of an NSTEMI. -Echocardiogram described above #7 Acute elevated serum lactic acid present on admission, evaluation and treatment ongoing -most likely due to cardiogenic shock due to low output, concurrent hypercapnia. -Treatment as above. -on admission 2.4 trended to normal 1.6 #8 elevated serum glucose, chronicity unknown, evaluation and treatment initiated. Hemoglobin A1c Low-dose correctional insulin Nothing by mouth at this time Exam Vital Signs (Last) Date Time Temp Pulse Resp B/P Pulse Ox O2 Delivery O2 Flow Rate FiO2 10/02/16 07:30 62 69/51 99 50 10/02/16 05:07 Ventilator 10/02/16 05:07 36.4 30 10/02/16 00:55 3 Exam General: normal body habitus, Laying in bed, intubated, sedated HEENT: Normocephalic, atraumatic, endotracheal tube and OG tube in place, pupils constricted bilaterally equal round and reactive to light neck: supple, trachea midline, right IJ in place Cardiovascular: irregularly irregular rhythm with normal rate, no clicks murmurs rubs, peripheral pulses 2/4 equal bilaterally at radial and dorsalis pedis, PMI to faint to appreciate, Hepatojugular reflux not appreciated, no JVD apparent Pulmonary: Intubated with some upper airway sound transmission, mild appreciable rales in bilateral bases L>R Abdominal: Soft to palpation, bowel sounds present 4, no hepatosplenomegaly. Surgical scar, midline below the umbilicus. Extremities: No edema appreciated. No tenderness, asymmetry. Neuro: Neurologic exam is limited due to sedation. Pupils are equally round. She appears to only move her left upper and lower extremities in response to pain. MSK: Unable to thoroughly examine. Psych: unable to assess : Osorio in place Test 10/02/16 01:00 10/02/16 01:27 10/02/16 01:42 10/02/16 03:50 Prothrombin Time 12.4sec (8.1-12.5) Prothromb Time International Ratio 1.16ratio Activated Partial Thromboplast Time 27.5sec (22.8-33.0) Troponin T 0.151ug/L (0.0-0.011) Hold [place] Top Tube Received (Received) Hold Purple Top Tube Received (Received) Hold Blue Top Tube Received (Received) Hold Red Top Tube Received (Received) Hold [place] Top Tube Received (Received) Urine Color Dark yellow (YELLOW) Urine Appearance Clear (CLEAR,HAZY) Urine pH 6.0 (5.0-8.0) Urine Specific [place] 1.030 (1.003-1.035) Urine Protein 100mg/dL (NEG,TRACE) Urine Glucose (UA) Negativemg/dL (NEGATIVE) Urine Ketones Negativemg/dL (NEGATIVE) Urine Occult Blood Trace (NEGATIVE) Urine Nitrite Negative (NEGATIVE) Urine Bilirubin Small (NEGATIVE) Urine Ictotest Positive (Negative) Urine Urobilinogen 2.0mg/dL (NORMAL) Urine Leukocyte Esterase Negative (NEGATIVE) Urine RBC 0-2/hpf (0-2) Urine WBC 0-5/hpf (0-5) Urine Epithelial Cells Many/hpf (NONE-MOD) Urine Crystals None seen (NONE SEEN) Urine Bacteria None/hpf (NONE-FEW) Urine Hyaline Casts Occasional/lpf (NONE) Urine Granular Casts None seen (NONE SEEN) Urine Waxy Casts None seen (NONE SEEN) Urine Red Blood Cell Casts None seen (NONE SEEN) Urine White Blood Cell Casts None seen (NONE SEEN) Urine Mucus Present (None Seen) Urine Trichomonas None seen (NONE SEEN) Urine Yeast None (NONE SEEN) Urine Culture Reflexed Not indicated Test 10/02/16 04:35 10/02/16 10:42 White Blood Count 10.0th/mm3 (3.8-10.1) Red Blood Count 4.87mil/mm3 (3.90-5.20) Hemoglobin 12.4g/dL (12.0-15.6) Hematocrit 39.4% (35.0-46.0) Mean Corpuscular Volume 80.9fL (81-100) Mean Corpuscular Hemoglobin 25.5pg (27.0-35.0) Mean Corpuscular Hemoglobin Concent 31.5% (32.0-37.0) Red Cell Distribution Width 19.2% (12.3-15.4) Platelet Count 192bil/L (150-400) Neutrophils (%) (Auto) 83.7% (40-74) Lymphocytes (%) (Auto) 8.6% (14-46) Monocytes (%) (Auto) 7.4% (4-12) Eosinophils (%) (Auto) 0% (0-5) Basophils (%) (Auto) 0.1% (0-3) Sodium Level 135mEq/L (134-144) Potassium Level 5.5mEq/L (3.5-5.2) Chloride Level 101mEq/L (97-108) Carbon Dioxide Level 17mmol/L (18-29) Blood Urea Nitrogen 13mg/dL (6-20) Creatinine 0.66mg/dL (0.57-1.00) Estimat Glomerular Filtration Rate 148mL/min (>59) Glucose Level 151mg/dL (60-99) Calcium Level 8.2mg/dL (8.5-10.1) Phosphorus Level 5.8mg/dL (2.5-4.9) Magnesium Level 1.8mg/dL (1.6-2.6) Total Bilirubin 1.5mg/dL (0.0-1.2) Aspartate Amino Transf (AST/SGOT) 30U/L (0-50) Alanine Aminotransferase (ALT/SGPT) 15U/L (0-32) Alkaline Phosphatase 185U/L (25-150) Total Protein 7.9g/dL (6.4-8.4) Albumin 4.1g/dL (3.4-5.0) Prealbumin 12mg/dL (20-40) Triglycerides Level 70mg/dL (0-149) Procalcitonin 0.02ng/mL (0.00-0.08) Microbiology Results Sputum samples pending Discharge Medications Discharge Medications Aspirin-Expunged Drug, Do Not Renew! (Aspirin EC-Expunged Drug, Do Not Renew!) 81 Mg Tablet 81 MG PO DAILY (Reported) DO NOT CRUSH. To protect your heart. Digoxin-Expunged Drug, Do Not Renew! (Digoxin-Expunged Drug, Do Not Renew!) 250 Mcg Tablet 0.25 MG PO DAILY (Reported) For your heart. Lisinopril-Expunged Drug, Do Not Renew! (Lisinopril-Expunged Drug, Do Not Renew! ) 5 Mg Tablet 2.5 MG PO DAILY (Reported) Metoprolol Suc-Expunged Drug, Do Not Renew! (Metoprolol Suc-Expunged Drug, Do Not Renew!) 25 Mg Tber 25 MG PO DAILY (Reported) To control heart rate/blood pressure. Simvastatin-Expunged Drug, Choose New Med! (Simvastatin-Expunged Drug, Choose New Med!) 20 Mg Tablet 10 MG PO DAILY (Reported) As needed Hydroxyzine Leslie-Expunged Drug, Do Not Renew! (Vistaril-Expunged Drug, Do Not Renew!) 25 Mg Tab 25 MG PO Q12 PRN PRN (Reported) As needed for itching Followup Plan Disposition: transfer to Patient Instructions to be determined Attending Statement The patient was seen and examined together with Dr. Aquino on 10-02-16 and I agree with the history, exam and plan as outlined in the note above. I spent over 30 minutes of my time discharging this patient today, in addition to time spent with residents discussing this case. Harpal Aquino 13, 2017 11:31 Kaylynn Willis MD Oct 03, 2016 15:08
--- NOTE | 2016-10-02 11:38 | DRSVH ---
PROCEDURE: X-RAY CHEST ONE VIEW, PORTABLE ([id number]) INDICATIONS: CENTRAL LINE PLACEMENT TECHNIQUE: One view of the chest was acquired. COMPARISON: Located Within [facility], CR, XR CHEST 1VW (PORTABLE), 10/02/2016, 10:51. [facility], CR, XR CHEST 1VW (PORTABLE), 10/02/2016, 10:40. FINDINGS: Surgical changes and devices: Pacemaker and nasogastric tube are unchanged. Right-sided central venou s catheter is present with distal tip overlying the right atrium, demonstrating an approximate 2.5 cm retraction compared to prior exam. Lungs and pleura: Persistent bibasilar opacities are present.. Mediastinum: Mediastinal contours appear normal. Heart size is enlarged. Bones and chest wall: No suspicious bony lesions. Overlying soft tissues appear unremarkable. IMPRESSION: Support lines as above. Otherwise, stable interval exam. Dictated by: Maya Conley M.D. on 10/02/2016 at 11:35 Approved by: Maya Conley M.D. on 10/02/2016 at 11:36
--- NOTE | 2016-10-02 11:39 | DRSVH ---
PROCEDURE: X-RAY CHEST ONE VIEW, PORTABLE ([id number]) INDICATIONS: CENTRAL LINE PLACEMENT TECHNIQUE: One view of the chest was acquired. COMPARISON: [facility], CR, XR CHEST 1VW (PORTABLE), 10/02/2016, 10:45. FINDINGS: Surgical changes and devices: Nasogastric tube and pacemaker are unchanged. Right-sided central venou s catheter is present with distal tip overlying the distal SVC/proximal atrial junction demonstrating an approximate 1.5 cm retraction compared to prior exam. Lungs and pleura: Bibasilar opacities are unchanged. Mediastinum: Mediastinal contours appear normal. Heart size is enlarged. Bones and chest wall: No suspicious bony lesions. Overlying soft tissues appear unremarkable. IMPRESSION: Central venous catheter as above. Otherwise, stable exam. Dictated by: Maya Conley M.D. on 10/02/2016 at 11:36 Approved by: Maya Conley M.D. on 10/02/2016 at 11:37
[2016-10-02 12:49] LABS: TROPONIN T 0.092 ug/L (0.0-0.011)
--- NOTE | 2016-10-02 13:30 | CONS ---
[address] [address] CONSULTATION REPORT PATIENT: MANDY NORTON : 1985 MR#: [id number] ADMIT: 10/02/2016 JOB ID: [id number] DATE OF SERVICE: 10/02/2016 IDENTIFICATION: I have been asked to consult on this critically ill, 31-year-old female with known progressive cardiomyopathy, admitted with progressive dyspnea and possible stroke-like symptoms. HISTORY: Her cardiac history dates back to 2010, when she was admitted with palpitations and chest discomfort and was found to have an AIVR type of rhythm with an ejection fraction around 50% to 55% with inferior wall hypokinesis and a positive troponin. She underwent cardiac catheterization which revealed normal coronary arteries with an ejection fraction around 45% with global hypokinesis and an LVEDP of 25%. She was treated with JANET inhibitors and beta blockade and was lost to followup for a short period of time, but was admitted to [facility] in 2011 with a stroke, manifest by right-sided weakness and aphasia, apparently with documentation of an occluded right middle cerebral artery. A hypercoagulable state workup was apparently negative. She was noted to have ventricular tachycardia during that admission as well. She ultimately had a negative Chagas evaluation. A CEHTAN later in 2011 again showed an ejection fraction around 45% with a probable minute patent foramen ovale but no significant shunting. She was admitted in June 2012 with a hemodynamically significant wide-complex tachycardia that was quite rapid. She required electrical cardioversion and had a potassium of 3.2. Electrophysiologic study showed no inducible arrhythmias, but given her persistent VT, an ICD was placed. She was noted to have chronically low blood pressures at that time, with blood pressures generally in the 80s and 90s. An echocardiogram at that time suggested an EF of 35% to 40%, although a cardiac MRI showed an ejection fraction calculated at 28% with akinesis and thinning of the proximal and mid lateral wall, consistent with fibrosis, as well as with akinesis at the apex, raising the question of sarcoid. She was subsequently followed by Dr. Marvin, who noted persistent elevation of her troponins consistent with myocarditis, with progressive decline in her ejection fraction down to 20% to 25%. She was ultimately referred to the [facility]. She was last seen by Dr. Marvin in January 2015, without a significant history of CHF, although had class II functional capacity from exertional dyspnea. She apparently had another episode of transient expressive aphasia in August 2014 and was admitted at [facility], although those records are not available but apparently there were no acute changes on her imaging. Her care was ultimately transferred to Dr. Chaudhari at [facility], who has followed her since then, most recently on August 23, 2016. Those notes suggest recent initiation of diuretics because of progressive dyspnea and fatigue and had a BNP at 1669 and a digoxin level of 0.8. Apparently an ejection fraction of 12% was calculated by echo in July at the [facility]. She was considered to be a possible candidate for transplant or LVAD implantation, although her lack of insurance and undocumented immigration status were felt to be potential barriers. She apparently had progressive dyspnea over the preceding week with possible orthopnea. When she awoke yesterday, apparently in a very agitated state with right-sided weakness and dyspnea. Her called the medics and found her to be extremely agitated and screaming and she was given ketamine and intubated. In the emergency department, head CT showed no acute abnormality but did suggest an old temporal and parietal infarct. In the emergency department, she was treated with IV furosemide and an initial ABG showed a pH of 7.1 with a pCO2 of 62 and a pO2 of 268 on 100% FiO2. Repeat ABG showed a pH of 7.4 with a pCO2 of 36 and an oxygen level of 159 on 50% FiO2. She is currently intubated and there are no family members available for any additional history, although from the medical record, it suggests that she has had no significant history of hypertension, diabetes, hyperlipidemia, or tobacco use. PAST MEDICAL HISTORY: Notable for sleep apnea, for which she uses CPAP. She has a history of subacute thyroiditis. Apparently has a right subclavian artery stenosis. She has chronic anemia and has previously been treated for a positive PPD many years ago. HOME MEDICATIONS: 1. Aspirin 81 mg daily. 2. Digoxin 0.25 mg daily. 3. Lisinopril 2.5 mg daily. 4. Metoprolol 25 mg daily. 5. Simvastatin 10 mg daily. 6. Hydroxyzine 25 mg q.12 h. p.r.n. ALLERGIES: Possibly to IODINE. FAMILY HISTORY: A sister, who is 10 years younger, apparently also has some cardiac issues. SOCIAL HISTORY: Apparently does not smoke or drink, although history cannot be currently obtained. REVIEW OF SYSTEMS: A review of systems cannot be obtained because of the patient's intubated state. PHYSICAL EXAMINATION: Intubated, comatose, female, who is unresponsive. BP: As low as in the 60s, although has now been started on an epinephrine drip. Heart rates have been in the 60-80 range. O2 saturation currently is 99% on a 50% FiO2. Her weight is 59.1 kg, and she has had a net diuresis since admission of around 1 L. Skin: Warm and dry. HEENT: Moist mucous membranes. Lungs: Clear laterally to auscultation. CV: Regular rate and rhythm with a nonpalpable PMI, without any appreciable murmurs or gallops. There is no obvious JVD. Carotid pulses are 1+ bilaterally. Abdomen: Soft, nondistended, nontender, with normal bowel tones. Extremities: Warm, without any clubbing, cyanosis, or edema. : Osorio catheter in place. Neuro: Unresponsive. LABORATORY: White count is 10.0 with hematocrit of 39%. Her lactate on admission was 2.4 and is pending. Potassium was 5.5 earlier this morning with a bicarb of 17, with a BUN of 13 and a creatinine of 0.7. Glucose 151. Total bilirubin 1.5 with an alkaline phosphatase of 185, but otherwise LFTs are normal. Troponin was 0.151. Procalcitonin was 0.02. Chest x-ray shows suggestion of pulmonary edema versus infiltrates in the lung bases. ECG : On admission, shows a sinus rhythm with left atrial enlargement, possible right atrial enlargement, with low QRS voltage and poor R-wave progression across the precordium. Another ECG shows frequent PVCs in a bigeminal pattern, but this has now been corrected. Echocardiogram: Her echo today shows an ejection fraction likely of around 10% to 15% with severe global hypokinesis, although worse in the inferior and posterior segments, as well as the apex which appear to be thin and akinetic. The wall motion abnormalities are unchanged from her previous echocardiogram, although the left ventricle is significantly larger now with an end-diastolic dimension of 7.3 cm, with a concordant fall in her ejection fraction. She now has moderate mitral and tricuspid regurgitation, both more prominent from her previous echo, with diastolic parameters that suggest increased filling pressures. Pulmonary artery pressures are likely at least in the mid 50s, likely higher than on her previous study. There is a trivial pericardial effusion but with no evidence of tamponade physiology. IMPRESSION: 1. 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 This very unfortunate young female appears to have an end-stage condition to her cardiomyopathy. At this point, I suspect that she is somewhat volume overloaded, but with her current blood pressures, diuresis is challenging. I would continue to support her blood pressures, trying to keep her systolics in the 80s, which is her usual norm. Beyond this, I think her only long-term survival really depends upon possible LVAD or transplant. I have contacted Dr. Chaudhari at the [facility]. While these advanced therapies are problematic given her social situation, he agrees that the patient should be evaluated and treated at the [facility]. Given this, I would recommend urgent transfer to the Cardiology service at the [facility] with consultation by Dr. Chaudhari there. 2. Possible stroke. I suspect that her weakness may have been a transient accentuation of her previous symptoms but possibly due to the stress of her decompensated cardiac situation or could be a new event, although it is not apparent on her current head CT. Further evaluation per the [facility]. 3. History of implantable cardioverter-defibrillator placement. I will attempt to have her ICD interrogated ESTELLE to ensure that there has been no event. Alternatively, this can be done down at the [facility]. In the meantime, I would continue to ensure that her potassium, magnesium stay well repleted. 4. Sleep apnea, on continuous positive airway pressure. I suspect this may be a reflection of Ashwin-Ward breathing more than intrinsic sleep apnea. RECOMMENDATIONS: 1. Continue to support her hemodynamically with positive inotropes, currently using epinephrine as needed. 2. Transfer to [facility] for higher level of care. 3. Interrogate her device here or at the [facility]. 4. Ensure that her potassium, magnesium stay well repleted. I have spent a total of 2 hours and 2 minutes reviewing the patient's records, examining the patient, contacting her other providers, and her documenting this. [facility] HOSPITALKaylynn
--- NOTE | 2016-10-02 14:16 | NUR ---
P: Hypotensive I: Pt was hypotensive this am. RIJ TLC placed and epinephrine gtt started at 0.5mcqs./kg/min. NS 250cc bolus x2 given and NS at 100cc/hr. Propofol at 20mcqs and fentanyl 50 mcqs/hr. OGT patent to LIS. Peep down to 5 from 8. Osorio patent and draining yellow fluid. Crimp Setter here and Doctor talked with the and updated him on pt's condition and plan of care including transfer to of W. NPO. Blood sugars stable 100 and 148. Turned q 2 hours. Left arterial line placed. Magnesium 1.8 and 2Gms magnesium rider to replace. E: Stable S: restraints on for pt safety. Frequent rounding.
--- NOTE | 2016-10-02 14:29 | NUR ---
Report called to Lizette TORRES at [facility] Addendum: 10/02/16 at 1517 by ANTONIETTA MANLEY RN Report given to SAMMY from [facility], pt ready for transport
--- NOTE | 2016-10-02 18:07 | PCM.PROC ---
Procedure Note Date of Service: Oct 02, 2016 Pre Procedure Diagnosis: acute on chronic systolic heart failure secondary to nonischemic cardiomyopathy possible thromboembolic Cerebrovascular accident Post Procedure Diagnosis: acute on chronic systolic heart failure secondary to nonischemic cardiomyopathy possible thromboembolic Cerebrovascular accident Procedure: right internal jugular central venous line placement Provider and [employer] Food Cashier: Harpal Willis M.D. Indication for Procedure: Patient required pressor support for her hypotension Findings: none Procedural Analgesia: 1% Lidocaine 3mL instilled in the subcutaneous tissue Procedure Details: The patient was placed supine in a dependent position with her head rotated left appropriate for central line placement based on the right internal jugular vein to be cannulated. The patient's right IJ was localized using ultrasound imaging and marked with a skin marker. The patients right neck was prepped with chlorhexidine and draped in sterile fashion. 1% Lidocaine was used to anesthetize the surrounding skin area. Initially a narrow gauge IV catheter needle was used to gain access to the right IJ, however the catheter kinked when being slid from the needle hub into the internal jugular lumen. A repeat attempt with the same catheter needle combo resulted in a failed attempt and the catheter was disposed off in an appropriate sharps container. Finally a large bore introduction needle was used to enter the right IJ and the guide wire was able to successfully tread into the right IJ. An 11 blade scalpel was then used to [place] the skin for the dilater catheter to be threaded over the guidewire. A triple lumen Cordis catheter was the introduced into the the internal jugular using the Seldinger technique and under ultrasound guidance with a sterile probe cover. The catheter was threaded smoothly over the guide wire to the 3cm roberto and appropriate blood return was obtained. Each lumen of the catheter was evacuated of air and flushed with sterile saline. The catheter was then secured in place to the skin with a sterile Tegaderm dressing applied. Perfusion to the extremity distal to the point of catheter insertion was checked and found to be adequate. Dr. Willis was present for the entire procedure. Estimated Blood Loss: <15mL> A follow up chest xray resulted in the triple lumen Cordis catheter being withdrawn an additional 5cm for the tip to the located within the superior vena cava. The patient tolerated the procedure well and there were no complications. Specimen: none Post Procedure Plan: Start Epinephrine Gtt IV to keep mean arterial pressure above 65mmHg Attending Statement The patient was seen and examined together with Dr. Aquino on 10-02-16 and I agree with the history, exam and plan as outlined in the note above. I was present during the whole procedure. I initially tried to pass a right subclavian line but was unable to get any blood flash, there for with ultrasound probe Dr Aquino was able to pass an right IJ. Patient tolerated the procedure well, there were no immediate complications. Resident did a good job and followed sterile technique. Harpal Aquino DO Oct 02, 2016 18:07 Kaylynn Willis MD Oct 03, 2016 15:11
== END 2016-10-02 15:30 | disposition short-term general hospital (02) | DRG 64 ==
LOC: SED 00:44 → EDBD 00:44 → CCU 03:44
PROVIDERS: ADMIT Specialist; ATTEND Specialist
PROC: 5A1935Z Respiratory Ventilation, Less than 24 Consecutive Hours (ICD-10-PCS; principal; 2016-10-02)
PROC: 0BH18EZ Insertion of Endotracheal Airway into Trachea, Via Natural or Artificial Opening Endoscopic (ICD-10-PCS; 2016-10-02)
PROC: 4A033R1 Measurement of Arterial Saturation, Peripheral, Percutaneous Approach (ICD-10-PCS; 2016-10-02)
PROC: 05HM33Z Insertion of Infusion Device into Right Internal Jugular Vein, Percutaneous Approach (ICD-10-PCS; 2016-10-02)
DX: I63.9 Cerebral infarction, unspecified (principal); I50.23 Acute on chronic systolic (congestive) heart failure; R40.2112 Coma scale, eyes open, never, at arrival to emergency department; R40.2212 Coma scale, best verbal response, none, at arrival to emergency department; E87.4 Mixed disorder of acid-base balance; I42.8 Other cardiomyopathies; G81.91 Hemiplegia, unspecified affecting right dominant side; Z95.810 Presence of automatic (implantable) cardiac defibrillator; Z86.73 Personal history of transient ischemic attack (TIA), and cerebral infarction without residual deficits; Z79.82 Long term (current) use of aspirin; E87.5 Hyperkalemia; G47.30 Sleep apnea, unspecified; R40.2352 Coma scale, best motor response, localizes pain, at arrival to emergency department; R40.2432 Glasgow coma scale score 3-8, at arrival to emergency department